=== PATIENT | male | born 1975 | race Caucasian/White ===

== ENCOUNTER 2025-01-05 23:51 | Inpatient (IN) | payer OTHER ==
[2025-01-05 23:58] VITALS: BMI 25.7
[2025-01-06] MEDS ORDERED: guaiFENesin 600 MG TABLET.ER (FP) PO PRN (00:08)
[2025-01-06] MEDS ORDERED: DICYCLOMINE HCL 10 MG CAPSULE PO PRN (00:08)
[2025-01-06] MEDS ORDERED: ACETAMINOPHEN 325 MG TABLET (FP) PO PRN (00:08)
[2025-01-06] MEDS ORDERED: NALOXONE (NARCAN) HCL 4 MG/0.1 ML SPRAY NS PRN (00:08)
[2025-01-06] MEDS ORDERED: BENZOCAINE/MENTHOL (CHLORASEPTIC ) LOZENGE MM PRN (00:08)
[2025-01-06] MEDS ORDERED: ONDANSETRON *ODT* 4 MG TABLET SL PRN (00:08)
[2025-01-06] MEDS ORDERED: chlordiazePOXIDE HCL 25 MG CAPSULE PO PRN (00:08)
[2025-01-06] MEDS ORDERED: MAG HYDROX/AL HYDROX/SIMETH 30 ML UNIT-DOSE CUP PO PRN (00:08)
[2025-01-06] MEDS ORDERED: LOPERAMIDE HCL 2 MG CAPSULE PO PRN (00:08)
[2025-01-06] MEDS ORDERED: MAGNESIUM HYDROX 2400MG/30ML ORAL SUSPENSION 30 ML CUP PO PRN (00:08)
[2025-01-06] MEDS ORDERED: POLYETHYLENE GLYCOL (HEALTHYLAX) 3350 17 GM PACKET PO PRN (00:08)
[2025-01-06] MEDS ORDERED: IBUPROFEN 400 MG TABLET (FP) PO PRN (00:08)
[2025-01-06] MEDS ORDERED: BENZONATATE 200 MG CAPSULE PO PRN (00:08)
[2025-01-06] MEDS ORDERED: BISMUTH SUBSALICYLATE 524 MG/30 ML PO PRN (00:08)
[2025-01-06] MEDS ORDERED: METHOCARBAMOL 500 MG TABLET ONE (00:46)
[2025-01-06] MEDS: chlordiazePOXIDE HCL 25 MG CAPSULE PO ONE (00:48)
[2025-01-06] MEDS: METHOCARBAMOL 500 MG TABLET PO PRN (00:48)
[2025-01-06] MEDS: IBUPROFEN 600 MG TABLET (FP) PO PRN (02:28)
[2025-01-06] MEDS: hydrOXYzine PAMOATE 25 MG CAPSULE (FP) PO PRN (02:28)
[2025-01-06] MEDS: chlordiazePOXIDE HCL 25 MG CAPSULE PO SCH (05:41)
[2025-01-06] MEDS: PRENATAL VITAMINS W/ FOLIC ACID TABLET (FP) PO SCH (10:12)
[2025-01-06 15:48] LABS: MCHC 32.5 g/dl (32.3-36.5); MEAN CELL VOLUME 92.6 fl (79.0-92.2); MEAN PLT VOLUME 10.2 fl (9.4-12.4); PLATELET COUNT 324 x10^3/uL (163-337); RDW 14.3 % (12.1-15.9)
[2025-01-06 16:01] LABS: CHLORIDE 106 mmol/L (98-107); SODIUM 141 mmol/L (136-145)
[2025-01-06 16:07] LABS: CALCIUM 8.9 mg/dL (8.5-10.1)
[2025-01-06 16:08] LABS: ALBUMIN 3.3 g/dl (3.4-5.0); ANION GAP 8 mmol/L (4-13); BLOOD UREA NITROGEN 16.6 mg/dL (7-18); CO2 27 mmol/L (21-32); GLUCOSE,RANDOM 99 mg/dL (74-106)
[2025-01-06 16:11] LABS: CREATININE 0.9 mg/dL (0.55-1.3); SGOT/AST 36 U/L (15-37); SGPT/ALT 73 U/L (13-61)
[2025-01-06 16:13] LABS: BILIRUBIN,TOTAL 0.7 mg/dL (0.2-1); TOT PROT 6.4 g/dl (6.4-8.2)
[2025-01-06 16:14] LABS: ALK PHOS 123 U/L (45-117)
[2025-01-06] MEDS ORDERED: MELATONIN 5 MG TABLETS PO SCH (22:00)
[2025-01-06] MEDS: MELATONIN 5 MG TABLETS PO SCH (22:07)
[2025-01-06] MEDS: THIAMINE 100 MG TABLET PO SCH (22:07)
[2025-01-07] MEDS: chlordiazePOXIDE HCL 25 MG CAPSULE PO SCH (05:48)
[2025-01-07] MEDS ORDERED: ACETAMINOPHEN 325 MG TABLET (FP) PO PRN (09:50)
[2025-01-07] MEDS: ACETAMINOPHEN 325 MG TABLET (FP) PO PRN (10:34)
[2025-01-08] MEDS ORDERED: chlordiazePOXIDE HCL 10 MG CAPSULE PO PRN
[2025-01-08] MEDS: chlordiazePOXIDE HCL 10 MG CAPSULE PO SCH ×2 (05:44→17:06)
[2025-01-09] MEDS ORDERED: chlordiazePOXIDE HCL 10 MG CAPSULE PO SCH (05:00)
[2025-01-09] MEDS: chlordiazePOXIDE HCL 10 MG CAPSULE PO ONE (05:44)
[2025-01-09 06:49] VITALS: BP 114/71; PULSE 64; RESP 16; TEMP 97.1
[2025-01-10] MEDS ORDERED: chlordiazePOXIDE HCL 10 MG CAPSULE PO ONE (05:00)
== END 2025-01-09 08:37 | disposition home or self-care (01) | DRG 775 ==
LOC: YASAS 23:51 → Y6N 01-06 01:09
PROVIDERS: ADMIT Allergy & Immunology; ATTEND Family Medicine Addiction Medicine
PROC: HZ2ZZZZ Detoxification Services for Substance Abuse Treatment (ICD-10-PCS; principal; 2025-01-06)
DX: F10.230 Alcohol dependence with withdrawal, uncomplicated (principal); F10.282 Alcohol dependence with alcohol-induced sleep disorder; F19.24 Other psychoactive substance dependence with psychoactive substance-induced mood disorder; F39 Unspecified mood [affective] disorder; Z62.810 Personal history of physical and sexual abuse in childhood; Z91.410 Personal history of adult physical and sexual abuse; Z63.0 Problems in relationship with spouse or partner; Z63.8 Other specified problems related to primary support group
CPT/HCPCS: 36415; 80053; 80307; 85027; 86780; 93005; 93010

== ENCOUNTER 2025-01-25 05:05 | Inpatient (IN) | payer OTHER ==
[2025-01-25 06:39] VITALS: BMI 28.7
[2025-01-25] MEDS ORDERED: guaiFENesin 600 MG TABLET.ER (FP) PO PRN (07:49)
[2025-01-25] MEDS ORDERED: DICYCLOMINE HCL 10 MG CAPSULE PO PRN (07:49)
[2025-01-25] MEDS ORDERED: LOPERAMIDE HCL 2 MG CAPSULE PO PRN (07:49)
[2025-01-25] MEDS ORDERED: NALOXONE (NARCAN) HCL 4 MG/0.1 ML SPRAY NS PRN (07:49)
[2025-01-25] MEDS ORDERED: MAG HYDROX/AL HYDROX/SIMETH 30 ML UNIT-DOSE CUP PO PRN (07:49)
[2025-01-25] MEDS ORDERED: POLYETHYLENE GLYCOL (HEALTHYLAX) 3350 17 GM PACKET PO PRN (07:49)
[2025-01-25] MEDS ORDERED: ACETAMINOPHEN 325 MG TABLET (FP) PO PRN (07:49)
[2025-01-25] MEDS ORDERED: BENZONATATE 200 MG CAPSULE PO PRN (07:49)
[2025-01-25] MEDS ORDERED: MAGNESIUM HYDROX 2400MG/30ML ORAL SUSPENSION 30 ML CUP PO PRN (07:49)
[2025-01-25] MEDS ORDERED: IBUPROFEN 400 MG TABLET (FP) PO PRN (07:49)
[2025-01-25] MEDS ORDERED: ONDANSETRON *ODT* 4 MG TABLET SL PRN (07:49)
[2025-01-25] MEDS ORDERED: BENZOCAINE/MENTHOL (CHLORASEPTIC ) LOZENGE MM PRN (07:49)
[2025-01-25] MEDS: PRENATAL VITAMINS W/ FOLIC ACID TABLET (FP) PO SCH (09:49)
[2025-01-25] MEDS: BISMUTH SUBSALICYLATE 524 MG/30 ML PO PRN (10:04)
[2025-01-25] MEDS: hydrOXYzine PAMOATE 25 MG CAPSULE (FP) PO PRN (14:39)
[2025-01-25] MEDS: METHOCARBAMOL 500 MG TABLET PO PRN (14:40)
[2025-01-25] MEDS: THIAMINE 100 MG TABLET PO SCH (22:02)
[2025-01-25] MEDS: MELATONIN 5 MG TABLETS PO SCH (22:02)
[2025-01-26 10:39] LABS: MCHC 32.7 g/dl (32.3-36.5); MEAN CELL VOLUME 93.9 fl (79.0-92.2); MEAN PLT VOLUME 10.8 fl (9.4-12.4); RDW 14.0 % (12.1-15.9)
[2025-01-26 10:52] LABS: CO2 25.0 mmol/L (21-32); GLUCOSE,RANDOM 133.0 mg/dL (74-106)
[2025-01-26 10:55] LABS: CREATININE 0.9 mg/dL (0.55-1.3); SGOT/AST 41.0 U/L (15-37); SGPT/ALT 59.0 U/L (13-61)
[2025-01-26 10:57] LABS: TOT PROT 7.4 g/dl (6.4-8.2)
[2025-01-26 10:58] LABS: ALK PHOS 145.0 U/L (45-117)
[2025-01-27] MEDS: LACTULOSE 20 GM/30 ML UDC (FOR ORAL USE ONLY) PO SCH (17:49)
[2025-01-28 09:35] VITALS: BP 132/93; PULSE 80; RESP 19; TEMP 97.7
[2025-01-28] MEDS: IBUPROFEN 600 MG TABLET (FP) PO PRN (09:59)
== END 2025-01-28 10:30 | disposition home or self-care (01) | DRG 775 ==
LOC: YASAS 05:05 → Y3N 08:59
PROVIDERS: ADMIT Neuromusculoskeletal Medicine & OMM; ATTEND Allergy & Immunology
PROC: HZ2ZZZZ Detoxification Services for Substance Abuse Treatment (ICD-10-PCS; principal; 2025-01-25)
DX: F10.230 Alcohol dependence with withdrawal, uncomplicated (principal); F12.20 Cannabis dependence, uncomplicated; F10.282 Alcohol dependence with alcohol-induced sleep disorder; F19.24 Other psychoactive substance dependence with psychoactive substance-induced mood disorder; R79.89 Other specified abnormal findings of blood chemistry; Z87.891 Personal history of nicotine dependence
CPT/HCPCS: 36415; 71046-TC-FY; 80053; 80305; 80307; 82140; 85027; 86780; 93005; 93010